=== PATIENT | male | born 1945 | race Caucasian/White ===

== ENCOUNTER 2020-11-24 17:59 | Inpatient (IN) | payer MEDICAID, MEDICARE, OTHER ==
[~2020-11-24] VITALS: Ht 175.3 cm; Wt 77.2 kg
[2020-11-24 01:50] VITALS: BP 137/65
[~2020-11-24 17:59] MED LIST: SUPPLIMENTS
--- NOTE | 2020-11-24 18:38 | NUR ---
pt c/o of left lower abd pain since 199 with dry heaving. denies cp, sob, and heacdache. denies fever/chills, and has not eaten anything out of ordinary. hx of hernia surgery in painful area. attached to monitors. bp elevated. nadn. a&ox4. breathing even and unlabored. bed in low, rails engaged. call light on lap. wctm.
[2020-11-24] MEDS ORDERED: SODIUM CHLORIDE FLUSH 10ML SYR IVF ONE (19:00)
[2020-11-24] MEDS ORDERED: ONDANSETRON 2MG/ML, 2ML IVPush ONE (19:00)
[2020-11-24] MEDS ORDERED: KETOROLAC 30 MG/1 ML IVPush ONE (19:00)
[2020-11-24] MEDS ORDERED: SODIUM CHLORIDE 0.9% 1,000ML IVBOLUS ONE (19:00)
[2020-11-24] MEDS ORDERED: ONDANSETRON 2MG/ML, 2ML ONE (19:17)
[2020-11-24] MEDS ORDERED: KETOROLAC 30 MG/1 ML ONE (19:17)
[2020-11-24 19:26] LABS: BASOPHILS % (AUTO) 0 % (0-1); EOSINOPHILS % (AUTO) 0 % (1-7); LYMPHOCYTES % (AUTO) 7 % (22-44); MEAN CORPUSCULAR HEMOGLOBIN 32.1 pg (27.5-34.5); MEAN CORPUSCULAR HGB CONC 35.1 g/dL (33.2-36.2); MEAN PLATELET VOLUME 8.1 fL (7.4-10.4); MONOCYTES % (AUTO) 4 % (2-9); NEUTROPHILS % (AUTO) 89 % (42-75); PLATELET COUNT 245 x10^3/uL (130-400); RED BLOOD COUNT 5.28 x10^6/uL (4.38-5.82); RED CELL DISTRIBUTION WIDTH 13.3 % (9.4-14.8)
--- NOTE | 2020-11-24 19:27 | NUR ---
pt off uinit in imaging.
--- NOTE | 2020-11-24 19:34 | NUR ---
PT AMBULATED TO BATHROOM AND BACK TO ROOM 20 MINS AGO WITH STEADY GAIT
[2020-11-24 19:35] LABS: ALANINE AMINOTRANSFERASE 61 U/L (12-78); ANION GAP 4 mmol/L (5-15); CHLORIDE 109 mmol/L (98-107); CREATININE 1.22 mg/dL (0.7-1.3)
[2020-11-24 19:37] LABS: ALKALINE PHOSPHATASE 69 U/L (45-117); BILIRUBIN,TOTAL 0.9 mg/dL (0.2-1.0); TOTAL PROTEIN 8.1 g/dL (6.4-8.2)
[2020-11-24 20:11] LABS: MICROSCOPIC INDICATED
[2020-11-24] MEDS ORDERED: TAMSULOSIN 0.4 MG CAP.ER.24H ONE (21:00)
[2020-11-24] MEDS ORDERED: TAMSULOSIN 0.4 MG CAP.ER.24H PO ONE (21:00)
[2020-11-24] MEDS ORDERED: KETOROLAC 30 MG/1 ML IV PRN (21:30)
[2020-11-24] MEDS ORDERED: morphine SULFATE 10 MG/ML, 1ML IVPush PRN (21:30)
[2020-11-24] MEDS ORDERED: ACETAMINOPHEN 325 MG TABLET PO PRN (21:30)
[2020-11-24] MEDS ORDERED: MELATONIN 5 MG TABLET PO PRN (21:30)
[2020-11-24] MEDS ORDERED: POLYETHYLENE GLYCOL 17 GM PACKET PO PRN (21:30)
[2020-11-24] MEDS ORDERED: ONDANSETRON 2MG/ML, 2ML IVPush PRN (21:30)
[2020-11-24] MEDS ORDERED: LABETALOL 5MG/ML, 20ML IVPush PRN (21:30)
--- NOTE | 2020-11-24 21:30 | NUR ---
PT IN NO ACUTE DISTRESS. RESTING COMFORTABLY IN BED, ON THE PHONE WITH HIS FAMILY. PT HAS NO COMPLAINTS AT THIS TIME EITHER. IV SITE INTACT, AND IVF INFUSING WELL. HOSPITALIST TO SEE PT AND EVAL FOR ADMISSION, AWAITING ROOM ASSIGNMENT.
--- NOTE | 2020-11-24 22:10 | NUR ---
PT TAKEN TO FLOOR ON [facility], NO ACUTE DISTRESS.
[2020-11-25 01:40] VITALS: BP_SYST 137; BP_SYST 152; BP_DIAS 65; BP_DIAS 81
[2020-11-25 05:23] LABS: BASOPHILS % (AUTO) 0 % (0-1); EOSINOPHILS % (AUTO) 1 % (1-7); LYMPHOCYTES % (AUTO) 24 % (22-44); MEAN CORPUSCULAR HEMOGLOBIN 32.4 pg (27.5-34.5); MEAN CORPUSCULAR HGB CONC 35.3 g/dL (33.2-36.2); MEAN PLATELET VOLUME 8.2 fL (7.4-10.4); MONOCYTES % (AUTO) 7 % (2-9); NEUTROPHILS % (AUTO) 67 % (42-75); PLATELET COUNT 227 x10^3/uL (130-400); RED BLOOD COUNT 4.73 x10^6/uL (4.38-5.82); RED CELL DISTRIBUTION WIDTH 12.5 % (9.4-14.8)
[2020-11-25 05:33] LABS: ANION GAP 5 mmol/L (5-15); CALCIUM 9.4 mg/dL (8.5-10.1); CHLORIDE 112 mmol/L (98-107)
[2020-11-25 05:34] LABS: CREATININE 0.96 mg/dL (0.7-1.3)
[2020-11-25] MEDS ORDERED: OMNIPAQUE 350 MG/ML, 50 ML BOTTLE ONE (07:14)
[2020-11-25 07:20] VITALS: BP 154/95
[2020-11-25] MEDS ORDERED: FENTANYL PF 100 MCG/2ML ONE (10:04)
[2020-11-25] MEDS ORDERED: MIDAZOLAM 1 MG/ML, 2ML ONE (10:04)
[2020-11-25] MEDS ORDERED: PROMETHAZINE 25 MG/ML, 1ML IVPush PRN (10:30)
[2020-11-25] MEDS ORDERED: HYDROcodone/APAP 7.5-325MG/15ML UDC PO PRN (10:30)
[2020-11-25] MEDS ORDERED: HYDROmorphone 1 MG/ML, 1ML INJ IVPush PRN (10:30)
[2020-11-25] MEDS ORDERED: ONDANSETRON 2MG/ML, 2ML IVPush PRN (10:30)
[2020-11-25] MEDS ORDERED: OXYcodone 5 MG/5 ML ORAL.SOL UDC PO PRN (10:30)
[2020-11-25] MEDS ORDERED: FENTANYL PF 100 MCG/2ML IV PRN (10:30)
[2020-11-25] MEDS ORDERED: EPHEDRINE 50 MG/ML, 1ML ONE (10:50)
[2020-11-25] MEDS ORDERED: PHENYLEPHRINE 10 MG/ML ONE (10:50)
[2020-11-25] MEDS ORDERED: LIDOCAINE 2% 100MG/5ML SYRINGE ONE (10:50)
[2020-11-25] MEDS ORDERED: ONDANSETRON 2MG/ML, 2ML ONE (11:09)
[2020-11-25] MEDS ORDERED: ROCURONIUM 10MG/ML,5ML ONE (11:09)
[2020-11-25] MEDS ORDERED: NEOSTIGMINE 1 MG/ML, 10ML ONE (11:09)
[2020-11-25] MEDS ORDERED: CEFAZOLIN 1,000 MG ONE (11:09)
[2020-11-25] MEDS ORDERED: PROPOFOL 10 MG/ML, 20ML ONE (11:09)
[2020-11-25] MEDS ORDERED: GLYCOPYRROLATE 0.2MG/1ML, 5ML ONE (11:09)
[2020-11-25] MEDS ORDERED: SUCCINYLCHOLINE 20 MG/ML, 10ML ONE (11:09)
[2020-11-25] MEDS ORDERED: DEXAMETHASONE 4 MG/ML, 1ML ONE (11:09)
== END 2020-11-25 15:30 | disposition home or self-care (01) | DRG 661 ==
LOC: ED 19:52 → EDIP 21:12 → 4NE 22:05
PROVIDERS: ADMIT Internal Medicine; ATTEND Hospitalist
PROC: 0TC78ZZ Extirpation of Matter from Left Ureter, Via Natural or Artificial Opening Endoscopic (ICD-10-PCS; 2020-11-25)
PROC: 0T778DZ Dilation of Left Ureter with Intraluminal Device, Via Natural or Artificial Opening Endoscopic (ICD-10-PCS; 2020-11-25)
PROC: 0TBB8ZX Excision of Bladder, Via Natural or Artificial Opening Endoscopic, Diagnostic (ICD-10-PCS; 2020-11-25)
PROC: BT1F1ZZ Fluoroscopy of Left Kidney, Ureter and Bladder using Low Osmolar Contrast (ICD-10-PCS; 2020-11-25)
PROC: 0TC18ZZ Extirpation of Matter from Left Kidney, Via Natural or Artificial Opening Endoscopic (ICD-10-PCS; principal; 2020-11-25 10:30)
DX: N13.2 Hydronephrosis with renal and ureteral calculous obstruction (principal); I10 Essential (primary) hypertension; Z20.822 Contact with and (suspected) exposure to COVID-19; Z87.442 Personal history of urinary calculi; E78.5 Hyperlipidemia, unspecified; Z82.49 Family history of ischemic heart disease and other diseases of the circulatory system; Z79.899 Other long term (current) drug therapy
CPT/HCPCS: 36415; 74176; 74420; 80048; 80053; 81001; 82360; 85025; 87635; 88300; 88307; 93005; 96374; G0378; J0690; J1100; J1885; J2250; J2405; J2704; J2710; J3010; Q9967; C1758; C1769; C2617; J0330; J2370; J7030